=== PATIENT | male | born 1945 | race Caucasian/White ===

== ENCOUNTER 2018-04-20 08:54 | Outpatient (REF) | payer OTHER, SELFPAY ==
[2018-04-20 21:54] LABS: BUN 14 mg/dL (7-18); CREATININE 0.87 mg/dL (0.70-1.30)
== END 2018-04-20 08:55 ==
LOC: NCHCN 08:54
PROVIDERS: Visit Provider Internal Medicine
DX: Z01.812 Encounter for preprocedural laboratory examination (principal); Z13.89 Encounter for screening for other disorder; R69 Illness, unspecified
CPT/HCPCS: 84520; 82565

== ENCOUNTER 2018-05-24 16:07 | Outpatient (REF) | payer OTHER, SELFPAY ==
[2018-05-24 22:11] LABS: COMMENT (LAB VIEW ONLY) 71.49 mg/dL; Microalb ug/mg Crea 9.7 ug/mg Cr
== END 2018-05-24 16:27 ==
LOC: NCHCN 16:07
PROVIDERS: Visit Provider Internal Medicine
DX: E11.9 Type 2 diabetes mellitus without complications (principal); I10 Essential (primary) hypertension
CPT/HCPCS: 82043; 82570

== ENCOUNTER 2018-05-31 12:13 | Outpatient (REF) | payer OTHER, SELFPAY ==
[2018-05-31 21:29] LABS: BUN 19 mg/dL (7-18); CREATININE 0.91 mg/dL (0.70-1.30); Calcium 8.7 mg/dL (8.5-10.1); Chloride 105 mmol/L (98-107); Cholesterol 127 mg/dL (50-200); Glucose 120 mg/dL (70-100); HDL Cholesterol 46 mg/dL (40-60); LDL CHOLESTEROL 67 mg/dL (<100); Potassium 4.4 mmol/L (3.5-5.1); Sodium 144 mmol/L (136-145); Triglyceride 116 mg/dL (30-150)
== END 2018-05-31 12:33 ==
LOC: NCHCN 12:13
PROVIDERS: Visit Provider Internal Medicine
DX: E11.9 Type 2 diabetes mellitus without complications (principal); I10 Essential (primary) hypertension
CPT/HCPCS: 80048; 80061; 83721

== ENCOUNTER 2019-10-03 12:14 | Outpatient (REF) | payer OTHER, SELFPAY ==
[2019-10-03 21:56] LABS: Anion Gap 13.1 mmol/L (3-11); BUN 12 mg/dL (7-18); CO2 23.9 mmol/L (21.0-32.0); CREATININE 0.89 mg/dL (0.70-1.30); Calcium 8.7 mg/dL (8.5-10.1); Calculated LDL 55 mg/dL (<100); Chloride 106 mmol/L (98-107); Cholesterol 116 mg/dL (<200); Glucose 186 mg/dL (74-106); HDL Cholesterol 38 mg/dL (40-60); Potassium 4.4 mmol/L (3.5-5.1); Sodium 143 mmol/L (136-145); Triglyceride 119 mg/dL (<150)
== END 2019-10-03 12:34 ==
LOC: NCHCN 12:14
PROVIDERS: Visit Provider Internal Medicine
DX: I10 Essential (primary) hypertension (principal); M54.5 Low back pain
CPT/HCPCS: 80048; 80061

== ENCOUNTER 2019-10-06 09:44 | Outpatient (REF) | payer OTHER, SELFPAY ==
[2019-10-06 21:49] LABS: Microalb ug/mg Crea 7.6 ug/mg Cr
== END 2019-10-06 10:04 ==
LOC: NCHCN 09:44
PROVIDERS: Visit Provider Internal Medicine
DX: E11.9 Type 2 diabetes mellitus without complications (principal)
CPT/HCPCS: 82043; 82570

== ENCOUNTER 2019-12-27 11:19 | Outpatient (REF) | payer OTHER, SELFPAY ==
[2019-12-27 20:46] LABS: Hemoglobin A1C 6.8 % (3.8-5.6)
[2019-12-27 20:50] LABS: ALT 44 U/L (16-63); AST 37 U/L (15-37); Albumin 3.9 g/dL (3.4-5.0); Alkaline Phosphatase 82 U/L (46-116); Bilirubin, Direct 0.15 mg/dL (0.00-0.20); Bilirubin, Total 0.6 mg/dL (0.2-1.0); Total Protein 7.5 g/dL (6.4-8.2)
== END 2019-12-27 11:39 ==
LOC: NCHCN 11:19
PROVIDERS: Visit Provider Internal Medicine
DX: E11.9 Type 2 diabetes mellitus without complications (principal); R74.0 Nonspecific elevation of levels of transaminase and lactic acid dehydrogenase [LDH]
CPT/HCPCS: 80076; 83036

== ENCOUNTER 2020-01-18 08:34 | Outpatient (REF) | payer OTHER, SELFPAY ==
[2020-01-18 20:54] LABS: Bilirubin Negative (Negative); Blood Negative (Negative); Clarity Turbid (Clear); Glucose 100 mg/dL (Negative); Ketones Negative (Negative); Leukocyte Esterase Negative (Negative); Nitrite Negative (Negative); Specific Gravity >= 1.030 (1.005-1.025); Urobilinogen 0.2 EU/dL (Up TO 0.2); pH 5.5 (5-8)
[2020-01-20 08:25] LABS: PSA, Diagnostic 1.7 ng/mL (0.0-6.5)
== END 2020-01-18 08:54 ==
LOC: NCHCN 08:34
PROVIDERS: PCP Internal Medicine; Visit Provider Internal Medicine
DX: R82.90 Unspecified abnormal findings in urine (principal); Z12.5 Encounter for screening for malignant neoplasm of prostate
CPT/HCPCS: 81003; 84153

== ENCOUNTER 2021-01-30 09:54 | Outpatient (REF) | payer OTHER, SELFPAY ==
[2021-01-30 13:51] LABS: BUN 10 mg/dL (7-18); CREATININE 0.9 mg/dL (0.70-1.30)
== END 2021-01-30 09:55 | disposition home or self-care (01) ==
LOC: LBN 09:54
PROVIDERS: PCP Internal Medicine; Visit Provider Physician Assistant Surgical
DX: I67.1 Cerebral aneurysm, nonruptured (principal)
CPT/HCPCS: 84520; 82565

== ENCOUNTER 2021-04-04 15:03 | Outpatient (REF) | payer OTHER, SELFPAY ==
[2021-04-04 15:58] LABS: Hemoglobin A1C 7.1 % (<5.7)
[2021-04-04 23:08] LABS: PSA, Screening 0.9 ng/mL (0.0-6.5)
== END 2021-04-04 15:04 | disposition home or self-care (01) ==
LOC: NCHCN 15:03
PROVIDERS: PCP Internal Medicine; Visit Provider Internal Medicine
DX: E11.9 Type 2 diabetes mellitus without complications (principal); N40.0 Benign prostatic hyperplasia without lower urinary tract symptoms; Z12.5 Encounter for screening for malignant neoplasm of prostate
CPT/HCPCS: 84153; 83036

== ENCOUNTER 2021-07-15 20:54 | Outpatient (REF) | payer MEDICARE, SELFPAY | END 2021-07-15 20:55 | disposition home or self-care (01) | LOC: NCHCN 20:54 | PROVIDERS: PCP Internal Medicine; Visit Provider Internal Medicine | DX: E11.9 Type 2 diabetes mellitus without complications (principal) | CPT/HCPCS: 82043; 82570 ==

== ENCOUNTER 2021-10-11 15:50 | Outpatient (REF) | payer MEDICARE, SELFPAY ==
[2021-10-11 21:47] LABS: BUN 16 mg/dL (7-18); Calcium 8.8 mg/dL (8.5-10.1); Chloride 103 mmol/L (98-107); Glucose 119 mg/dL (74-106); Potassium 4.2 mmol/L (3.5-5.1); Sodium 139 mmol/L (136-145)
[2021-10-11 21:58] LABS: Hemoglobin A1C 6.8 % (<5.7)
== END 2021-10-11 15:51 | disposition home or self-care (01) ==
LOC: NCHCN 15:50
PROVIDERS: PCP Internal Medicine; Visit Provider Internal Medicine
DX: I10 Essential (primary) hypertension (principal); E11.9 Type 2 diabetes mellitus without complications
CPT/HCPCS: 80048; 83036

== ENCOUNTER 2022-06-13 18:24 | Outpatient (REF) | payer MEDICARE, SELFPAY ==
[2022-06-13 21:43] LABS: COMMENT (LAB VIEW ONLY) 73.77 mg/dL; Microalb ug/mg Crea 7.6 ug/mg Cr
== END 2022-06-13 18:25 | disposition home or self-care (01) ==
LOC: NCHCN 18:24
PROVIDERS: PCP Internal Medicine; Visit Provider Internal Medicine
DX: E11.9 Type 2 diabetes mellitus without complications (principal); I10 Essential (primary) hypertension
CPT/HCPCS: 82043; 82570

== ENCOUNTER 2022-10-28 10:34 | Outpatient (REF) | payer MEDICARE, SELFPAY ==
[2022-10-28 15:09] LABS: Anion Gap 7.7 mmol/L (3-11); BUN 16 mg/dL (7-18); CO2 28.3 mmol/L (21.0-32.0); CREATININE 0.8 mg/dL (0.70-1.30); Calcium 9.1 mg/dL (8.5-10.1); Chloride 109 mmol/L (98-107); Estimated GFR 91.15 (mL/min/1.73m2); Glucose 158 mg/dL (74-106); Sodium 145 mmol/L (136-145)
== END 2022-10-28 10:35 | disposition home or self-care (01) ==
LOC: NCHCN 10:34
PROVIDERS: PCP Internal Medicine; Visit Provider Nurse Practitioner Family
DX: I10 Essential (primary) hypertension (principal)
CPT/HCPCS: 80048

== ENCOUNTER 2022-12-03 21:49 | Outpatient (REF) | payer MEDICARE, SELFPAY ==
[2022-12-03 22:08] LABS: HCT 48.7 % (40.0-50.0); HGB 15.8 g/dL (13.5-17.5); MCH 30.9 pg (27.0-33.0); MCHC 32.4 % (32.0-36.0); MCV 95 fL (80-95); MPV 11.6 fL (8.0-11.0); Platelet Count 167 10^3/uL (130-400); RBC 5.12 10^6/uL (4.36-5.78); RDW 14.1 % (11.8-14.1); RDW-SD 49.4 fL; WBC 7.03 10^3/uL (4.4-10.8)
[2022-12-03 22:28] LABS: ALT 23 U/L (16-63); AST 24 U/L (15-37); Albumin 3.8 g/dL (3.4-5.0); Alkaline Phosphatase 91 U/L (46-116); Anion Gap 7.5 mmol/L (3-11); BUN 19 mg/dL (7-18); Bilirubin, Total 0.5 mg/dL (0.2-1.0); CO2 27.5 mmol/L (21.0-32.0); CREATININE 0.9 mg/dL (0.70-1.30); Calcium 9.3 mg/dL (8.5-10.1); Calculated LDL 61 mg/dL (<100); Chloride 107 mmol/L (98-107); Cholesterol 129 mg/dL (<200); Estimated GFR 87.96 (mL/min/1.73m2); Glucose 123 mg/dL (74-106); HDL Cholesterol 47 mg/dL (40-60); Potassium 4.3 mmol/L (3.5-5.1); Sodium 142 mmol/L (136-145); Total Protein 7.8 g/dL (6.4-8.2); Triglyceride 109 mg/dL (<150)
[2022-12-03 22:42] LABS: Hemoglobin A1C 6.4 % (<5.7)
== END 2022-12-03 21:50 | disposition home or self-care (01) ==
LOC: NCHCN 21:49
PROVIDERS: PCP Internal Medicine; Visit Provider Internal Medicine
DX: E11.9 Type 2 diabetes mellitus without complications (principal); I10 Essential (primary) hypertension; I63.89 Other cerebral infarction
CPT/HCPCS: 80053; 80061; 85027; 83036

== ENCOUNTER 2023-12-11 14:39 | Outpatient (REF) | payer MEDICARE, SELFPAY ==
[2023-12-11 15:00] LABS: HCT 48.3 % (40.0-50.0); HGB 15.9 g/dL (13.5-17.5); MCH 30.8 pg (27.0-33.0); MCHC 32.9 % (32.0-36.0); MCV 94 fL (80-95); MPV 11.4 fL (8.0-11.0); Platelet Count 164 10^3/uL (130-400); RBC 5.16 10^6/uL (4.36-5.78); RDW 14.1 % (11.8-14.1); WBC 6.96 10^3/uL (4.4-10.8)
[2023-12-11 15:41] LABS: Hemoglobin A1C 6.8 % (<5.7)
[2023-12-11 15:43] LABS: Anion Gap 12.8 mmol/L (3-11); BUN 16 mg/dL (7-18); CO2 25.2 mmol/L (21.0-32.0); CREATININE 0.8 mg/dL (0.70-1.30); Calcium 9.4 mg/dL (8.5-10.1); Chloride 106 mmol/L (98-107); Estimated GFR 90.58 (mL/min/1.73m2); Glucose 122 mg/dL (74-106); Potassium 4.1 mmol/L (3.5-5.1); Sodium 144 mmol/L (136-145)
== END 2023-12-11 14:40 | disposition home or self-care (01) ==
LOC: NCHCN 14:39
PROVIDERS: PCP Internal Medicine; Referring Provider Internal Medicine; Visit Provider Internal Medicine
DX: I10 Essential (primary) hypertension (principal); E11.9 Type 2 diabetes mellitus without complications
CPT/HCPCS: 80048; 85027; 83036

== ENCOUNTER 2024-08-12 13:42 | Outpatient (REF) | payer MEDICARE, SELFPAY ==
[2024-08-12 16:03] LABS: COMMENT (LAB VIEW ONLY) 75.84 mg/dL; Microalb ug/mg Crea 10.8 ug/mg Cr
== END 2024-08-12 13:43 | disposition home or self-care (01) ==
LOC: NCHCN 13:42
PROVIDERS: PCP Internal Medicine; Visit Provider Internal Medicine
DX: E11.9 Type 2 diabetes mellitus without complications (principal)
CPT/HCPCS: 82043; 82570

== ENCOUNTER 2024-11-08 14:44 | Outpatient (REF) | payer BC, SELFPAY ==
[2024-11-08 15:25] LABS: Abs Immature Grans 0.04 10^3/uL (0.0-0.06); Absolute Basophil Count 0.07 10^3/uL (0.0-0.2); Absolute Eosinophil Count 0.17 10^3/uL (0.0-0.7); Absolute Lymphocyte Count 2.12 10^3/uL (1.2-3.4); Absolute Monocyte Count 0.45 10^3/uL (0.1-0.8); Absolute Neutrophil Count 3.99 10^3/uL (1.2-6.7); Eosinophils % 2.5 %; HCT 49.7 % (40.0-50.0); HGB 15.9 g/dL (13.5-17.5); Immature Grans % 0.6 %; MCH 30.9 pg (27.0-33.0); MCV 97 fL (80-95); MPV 11.1 fL (8.0-11.0); Monocytes % 6.6 %; Neutrophils % 58.3 %; Platelet Count 174 10^3/uL (130-400); RBC 5.14 10^6/uL (4.36-5.78); RDW 13.2 % (11.8-14.1); RDW-SD 47.4 fL; WBC 6.84 10^3/uL (4.4-10.8)
== END 2024-11-08 14:45 | disposition home or self-care (01) ==
LOC: NCHCN 14:44
PROVIDERS: PCP Internal Medicine; Visit Provider Physician Assistant
DX: D69.2 Other nonthrombocytopenic purpura (principal)
CPT/HCPCS: 85025

== ENCOUNTER 2024-12-12 21:27 | Outpatient (REF) | payer BC, SELFPAY ==
[2024-12-12 22:00] LABS: ALT 32 U/L (16-63); AST 23 U/L (15-37); Albumin 3.9 g/dL (3.4-5.0); Alkaline Phosphatase 97 U/L (46-116); Anion Gap 11.3 mmol/L (3-11); BUN 18 mg/dL (7-18); Bilirubin, Total 0.5 mg/dL (0.2-1.0); CO2 23.7 mmol/L (21.0-32.0); CREATININE 0.8 mg/dL (0.70-1.30); Calcium 9.2 mg/dL (8.5-10.1); Calculated LDL 54 mg/dL (<100); Chloride 109 mmol/L (98-107); Cholesterol 131 mg/dL (<200); Estimated GFR 90.02 (mL/min/1.73m2); Glucose 117 mg/dL (74-106); HDL Cholesterol 51 mg/dL (>or=40); Potassium 4.1 mmol/L (3.5-5.1); Sodium 144 mmol/L (136-145); Total Protein 7.8 g/dL (6.4-8.2); Triglyceride 133 mg/dL (<150)
== END 2024-12-12 21:28 | disposition home or self-care (01) ==
LOC: NCHCN 21:27
PROVIDERS: PCP Internal Medicine; Visit Provider Internal Medicine
DX: I10 Essential (primary) hypertension (principal)
CPT/HCPCS: 80053; 80061

== ENCOUNTER 2025-07-19 16:47 | Outpatient (REF) | payer MEDICARE, SELFPAY ==
[2025-07-19 21:31] LABS: Microalb ug/mg Crea 23.4 ug/mg Cr
== END 2025-07-19 16:48 | disposition home or self-care (01) ==
LOC: NCHCN 16:47
PROVIDERS: PCP Internal Medicine; Visit Provider Internal Medicine
DX: E11.9 Type 2 diabetes mellitus without complications (principal)
CPT/HCPCS: 82043; 82570

== ENCOUNTER 2025-07-27 13:41 | Outpatient (REF) | payer MEDICARE, SELFPAY ==
[2025-07-27 20:43] LABS: BUN 18 mg/dL (9-23)
== END 2025-07-27 13:42 | disposition home or self-care (01) ==
LOC: NCHCN 13:41
PROVIDERS: PCP Internal Medicine; Visit Provider Internal Medicine
DX: Z01.812 Encounter for preprocedural laboratory examination (principal)
CPT/HCPCS: 84520; 82565